=== PATIENT | male | born 1960 | race Caucasian/White ===

== ENCOUNTER → 2016-07-24 | Day surgery (SDC) | payer OTHER ==
[2016-06-30 10:12] VITALS: Ht 179.1 cm; Wt 115.9 kg
[~2016-07-24] VITALS: Ht 179.1 cm; Wt 115.9 kg
[~2016-07-24] MED LIST: BUPIVACAINE 0.25% 2.5MG/ML PF 10 ML VIAL INFIL ONE; IOPAMIDOL INJ 61% 15 ML VIAL ONE; LIDOCAINE HCL 1% MPF 5 ML VIAL ONE; LISI-461 PO; PRAV20TA PO; PRLSR20 PO; SODIUM CHLORIDE 0.9% INJ 10 ML VIAL ONE
--- NOTE | 2016-07-24 14:23 | History & Physical Bridge - [place] ---
H&P Re-Evaluation Bridge Note: I have examined the patient, reviewed the History & Physical and in the interval since the performance of the History & Physical I have noted the following changes of clinical significance: No changes noted
[2016-07-24 14:53] VITALS: TEMP 37
--- NOTE | 2016-07-24 15:00 | Discharge Instructions ---
Discharge Instructions Date of Service Jul 24, 2016. Visit Reason for Visit: Lumbar Radiculopathy Discharge Discharge Diagnosis / Problem: left leg pain Discharge Goals Goal(s): Decrease discomfort, Improve function Activity Recommendations Activity Limitations: resume your previous activity Anesthesia . Post Anesthesia Instructions: If you have had General Anesthesia or IV Sedation: * Do not drive today. * Resume driving when surgeon permits. * Do not make important decisions or sign legal documents today. * Call surgeon for: 1. Temperature elevations greater than 101 degrees F. 2. Uncontrollable pain. 3. Excessive bleeding. 4. Persistent nausea and vomiting. 5. Medication intolerance (nausea, vomiting or rash). * For nausea and vomiting use only clear liquids such as: tea, soda, bouillon until nausea subsides, then gradually increase diet as tolerated. * If you have any concerns or questions, call your surgeon's office. If physician is unavailable and it is an emergency, call 911 or go to the nearest emergency room. . Diet Recommendations Recommended Home Diet: resume previous diet Procedures Procedures Performed: LEFT L4-5 TRANSFORAMINAL EPIDURAL STEROID INJECTION Pending Studies Studies pending at discharge: no Medical Emergencies . Who to Call and When: Medical Emergencies: If at any time you feel your situation is an emergency, please call 911 immediately. . Non-Emergent Contact Non-Emergency issues call your: Specialist . . "Provider Documentation" section prepared by Eliud Clay.
[2016-07-24 15:02] VITALS: BP 148/99; PULSE 78; O2SAT 98
--- NOTE | 2016-07-24 15:55 | OPERATIVE REPORT ---
DATE OF OPERATION: 07/24/2016 PREOPERATIVE DIAGNOSIS: Left L4 radiculopathy, history of an L4 through S1 fusion. POSTOPERATIVE DIAGNOSIS: Same. PROCEDURE: Left transforaminal L4 nerve root epidural injection. SURGEON: Dr. Eliud Clay. INDICATIONS: The patient is a 55-year-old white male that underwent a left transforaminal L4 nerve root block in the past with about 50% pain relief 4 months ago. He reports that the pain has been returning and he presents today for block to provide him with left L4 radiculopathy relief. PHYSICAL EXAMINATION: Pleasant male seated comfortably. A well-healed incision is present. He has no limitations with flexion or extension, decreased sensation in the L5 dermatomal distribution on the left L4 and L5 on the right. Negative seated straight leg raises. CONSENT: Verbal and written consent was obtained from the patient. Risks and benefits were reviewed. Risks include but are not limited to abscess and allergic reaction. The patient wishes to proceed. PROCEDURE: The patient was taken back to the special procedures room of the [facility] where he was maintained in a prone position. Backside was cleansed with Betadine x3 and a dry sterile dressing was applied. Fluoroscope was used to identify the L4-5 transforaminal space, first in an AP view and then moved into a 25 degree oblique view. The overlying skin was anesthetized with 5 mL of lidocaine 1% with a 25 gauge 1.5-inch needle. A 22 gauge 5 inch spinal needle was then directed down towards the inferior pedicle area with the goal. It was then advanced in an AP view. He felt some pain in the back. Isovue-300 contrast 1 mL was injected in which showed it to be in the soft tissue muscles. It was advanced another 0.5 cm. He then had paresthesias down the left thigh, was then retracted a few millimeters and injected with some more Isovue which appeared to be outline of the nerve. He then underwent injection after negative aspiration of 40 mg of Depo-Medrol and 1 mL of bupivacaine 0.25%. Injection reproduced a familiar transient radicular sensation in the L4 dermatomal distribution. DISPOSITION: The patient is taken out into the discharge recovery area where he will be discharged home once discharge criteria have been met. He is currently described substantial relief of pain in the L4 dermatomal distribution into the leg and knee of the left leg. Follow up in 2-4 weeks at the [facility]. I attest to the content of the Intraoperative Record and any orders documented therein. Any exceptio ns are noted below.
== END | disposition home or self-care (01) ==
LOC: X.SURG 13:50
PROVIDERS: ATTEND Physical Medicine & Rehabilitation
DX: M54.17 Radiculopathy, lumbosacral region (principal); M48.06 Spinal stenosis, lumbar region; Z98.1 Arthrodesis status

== ENCOUNTER → 2017-01-14 | Day surgery (SDC) | payer OTHER ==
[2017-01-09 15:35] VITALS: Ht 179.1 cm; Wt 111.4 kg
[~2017-01-14] VITALS: Ht 179.1 cm; Wt 111.4 kg
[~2017-01-14] MED LIST changes: -BUPIVACAINE 0.25% 2.5MG/ML PF 10 ML VIAL INFIL ONE; +BUPIVACAINE 0.25% 2.5MG/ML PF 10 ML VIAL ONE; -SODIUM CHLORIDE 0.9% INJ 10 ML VIAL ONE
[2017-01-14 14:10] VITALS: TEMP 36.7
--- NOTE | 2017-01-14 14:14 | Discharge Instructions ---
Discharge Instructions Date of Service Jan 14, 2017. Visit Reason for Visit: Lumbar Radiculopathy Discharge Discharge Diagnosis / Problem: left leg pain Discharge Goals Goal(s): Decrease discomfort, Improve function Activity Recommendations Activity Limitations: resume your previous activity Anesthesia . Post Anesthesia Instructions: If you have had General Anesthesia or IV Sedation: * Do not drive today. * Resume driving when surgeon permits. * Do not make important decisions or sign legal documents today. * Call surgeon for: 1. Temperature elevations greater than 101 degrees F. 2. Uncontrollable pain. 3. Excessive bleeding. 4. Persistent nausea and vomiting. 5. Medication intolerance (nausea, vomiting or rash). * For nausea and vomiting use only clear liquids such as: tea, soda, bouillon until nausea subsides, then gradually increase diet as tolerated. * If you have any concerns or questions, call your surgeon's office. If physician is unavailable and it is an emergency, call 911 or go to the nearest emergency room. . Diet Recommendations Recommended Home Diet: resume previous diet Procedures Procedures Performed: LEFT L4 TRANSFORAMINAL EPIDURAL STEROID INJECTION Pending Studies Studies pending at discharge: no Medical Emergencies . Who to Call and When: Medical Emergencies: If at any time you feel your situation is an emergency, please call 911 immediately. . Non-Emergent Contact Non-Emergency issues call your: Specialist . . "Provider Documentation" section prepared by Eliud Clay. .
[2017-01-14 14:17] VITALS: BP 130/84; PULSE 82; O2SAT 95
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
== END | disposition home or self-care (01) ==
LOC: X.SURG 12:28
PROVIDERS: ATTEND Physical Medicine & Rehabilitation
DX: M54.16 Radiculopathy, lumbar region (principal); Z98.1 Arthrodesis status